=== PATIENT | male | born 1975 | race Two or more races ===

== ENCOUNTER 2019-02-05 10:53 | Inpatient (IN) | payer SELFPAY ==
[2019-02-05 14:01] VITALS: BMI 23.1
--- NOTE | 2019-02-05 15:06 | HP ---
COWS - Scale Resting Pulse: 0= [place] 80 or Below Sweatin= Chills/Flushing Restless Observation: 1= Difficult to Sit Still Pupil Size: 1= Pupils >than Normal Bone or Joint Aches: 2= Severe Diffuse Aches Runny Nose/ Eye Tearin= Runny Nose/Eyes GI Upset > 30mins: 2= Nausea/Diarrhea Tremor Observation: 2= Slight Tremor Visible Yawning Observation: 1= 1-2x During Session Anxiety or Irritability: 2=Irritable/Anxious Goose Flesh Skin: 0=Smooth Skin COWS Score: 14 CIWA Score - Admission Criteria [facility]ASAS Guidelines: Admission for Medically Managed Detox: Requires at least one of the followin. CIWA greater than 12 2. Seizures within the past 24 hours 3. Delirium tremens within the past 24 hours 4. Hallucinations within the past 24 hours 5. Acute intervention needed for co occurring medical disorder 6. Acute intervention needed for co occurring psychiatric disorder 7. Severe withdrawal that cannot be handled at a lower level of care (continued vomiting, continued diarrhea, abnormal vital signs) requiring intravenous medication and/or fluids 8. Admission ROS S - HPI Chief Complaint: i need help to stop using heroin Allergies/Adverse Reactions: Allergies Allergy/AdvReac Type Severity Reaction Status Date / Time No Known Drug Allergies Allergy Verified 02/05/19 15:44 [place] AdvReac Mild Uncoded 02/05/19 15:44 History of Present Illness: this 43 year old male with heroin and cocaine dependence,seeking detox, withdrawal symptom, multiple admissions in detox,last admission [facility] to 02/19/13 not completed nicotine dependence 1/2 pack/day ,would like nicotine patch and gum weight loss longest period of sobriety plan for out patient program injury to left chest wall 2 weeks ago Exam Limitations: No Limitations - Ebola screening Have you traveled outside of the country in the last 21 days: No (N) Have you had contact with anyone from an Ebola affected area: No Do you have a fever: No - Review of Systems Constitutional: Chills, Loss of Appetite, Night Sweats, Changes in sleep, Unintentional Wgt. Loss EENT: reports: Tearing, Nose Congestion Respiratory: reports: No Symptoms reported Cardiac: reports: No Symptoms Reported GI: reports: Diarrhea, Nausea, Vomiting, Indigestion : reports: No Symptoms Reported Musculoskeletal: reports: Back Pain, Joint Pain, Muscle Pain, Joint Stiffness Integumentary: reports: Dryness Neuro: reports: Headache, Tremors Endocrine: reports: No Symptoms Reported Hematology: reports: No Symptoms Reported Psychiatric: reports: No Sypmtoms Reported, Judgement Intact, Mood/Affect Appropiate, Orientated x3 Other Systems: Reviewed and Negative Patient History - Patient Medical History Hx Anemia: No Hx Asthma: Yes (ALBUTEROL inhaler) Hx Chronic Obstructive Pulmonary Disease (COPD): No Hx Cancer: No Hx Cardiac Disorders: No Hx Congestive Heart Failure: No Hx Hypertension: No Hx Hypercholesterolemia: No Hx Pacemaker: No HX Cerebrovascular Accident: No Hx Seizures: No Hx Dementia: No Hx Diabetes: No Hx Gastrointestinal Disorders: No Hx Liver Disease: No Hx Genitourinary Disorders: No Hx Sexually Transmitted Disorders: No Hx Renal Disease (ESRD): No Hx Thyroid Disease: No Hx Human Immunodeficiency Virus (HIV): No (last 08/02negative) Hx Hepatitis C: No Hx Depression: No Hx Suicide Attempt: No Hx Bipolar Disorder: No Hx Schizophrenia: No Other Medical History: no suicidal,no homicidal - Patient Surgical History Past Surgical History: Yes Hx Neurologic Surgery: No Hx Cataract Extraction: No Hx Cardiac Surgery: No Hx Lung Surgery: No Hx Breast Surgery: No Hx Breast Biopsy: No Hx Abdominal Surgery: Yes (right inguinal hernia repair at age of 46 years old) Hx Appendectomy: No Hx Cholecystectomy: No Hx Genitourinary Surgery: No Hx Section: No Hx Orthopedic Surgery: No Other Surgical History: right inguinal hernia repair at age 6 Anesthesia Reaction: No - PPD History Previous Implant?: Yes Documented Results: Negative w/o proof Implanted On Prior [facility] Admission?: Yes Date: 01/06/13 PPD to be Administered?: Yes - Smoking Cessation Smoking history: Current every day smoker Have you smoked in the past 12 months: Yes Aproximately how many cigarettes per day: 20 Hx Chewing Tobacco Use: No Initiated information on smoking cessation: Yes 'Breaking Loose' booklet given: 02/05/19 - Substance & Tx. History Hx Alcohol Use: No Hx Substance Use: Yes Substance Use Type: Cocaine, Heroin Hx Substance Use Treatment: Yes ([facility] 02/18/13 to 02/19/13) - Substances abused Heroin Substance route: Injection Frequency: Daily Amount used: 6-8 bags/daily Age of first use: 30 Date of last use: 02/04/19 Cocaine Substance route: Inhalation Frequency: 1-3 times last 30 days Amount used: $40 Age of first use: 30 Date of last use: 02/02/19 Family Disease History - Family Disease History Family History: Denies Admission Physical Exam [facility] - Vital Signs Vital Signs: Vital Signs - 24 hr 02/05/19 13:52 Temperature 97.4 F L Pulse Rate 72 Respiratory 18 Rate Blood Pressure 97/64 - Physical General Appearance: Yes: Moderate Distress, Tremorous, Irritable, Sweating, Anxious HEENTM: Yes: Normal ENT Inspection, Pharynx Normal Respiratory: Yes: Lungs Clear, Normal Breath Sounds, No Respiratory Distress, Other (history of asthma injury to left ribs 2 weeks ago) Neck: Yes: Within Normal Limits, Supple, Trachea in good position Breast: Yes: Within Normal Limits Cardiology: Yes: Within Normal Limits, Regular Rhythm, Regular Rate, S1, S2 Abdominal: Yes: Within Normal Limits, Normal Bowel Sounds, Non Tender, Flat, Surgical Scar Genitourinary: Yes: Within Normal Limits Back: Yes: Muscle Spasm Musculoskeletal: Yes: Back pain, Joint Stiffness, Muscle Pain Extremities: Yes: Tremors Neurological: 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, Alert, Motor Strength 5/5 Integumentary: Yes: Dry, Track Helm Lymphatic: Yes: Within Normal Limits - Diagnostic (1) Opioid dependence with withdrawal Current Visit: Yes Status: Acute (2) IVDU (intravenous drug user) Current Visit: Yes Status: Acute (3) Cocaine abuse Current Visit: Yes Status: Acute (4) Asthma Current Visit: No Status: Active (5) Weight decreased Current Visit: No Status: Active (6) Contusion of left chest wall Current Visit: Yes Status: Acute (7) Nicotine dependence Current Visit: Yes Status: Acute Cleared for Admission [facility] - Detox or Rehab [facility] Level of Care: Medically Managed Detox Regimen/Protocol: Methadone Inpatient Rehab Admission - Rehab Decision to Admit Inpatient rehab admission?: No
[2019-02-05] MEDS ORDERED: cloNIDine HCL 0.1 MG TABLET PO PRN (15:23)
[2019-02-05] MEDS ORDERED: METHADONE HCL 10 MG TABLET (FOR DETOX USE ONLY) PO ONE ×2 (15:25→23:00)
[2019-02-05] MEDS ORDERED: MAGNESIUM CITRATE 300 ML BOTTLE PO PRN (15:29)
[2019-02-05] MEDS ORDERED: IBUPROFEN 400 MG TABLET (FP) PO PRN (15:29)
[2019-02-05] MEDS ORDERED: BISMUTH SUBSALICYLATE 262 MG/15 ML BTL PO PRN (15:29)
[2019-02-05] MEDS ORDERED: MAGNESIUM HYDROX 2400MG/30ML ORAL SUSPENSION 30 ML CUP PO PRN (15:29)
[2019-02-05] MEDS ORDERED: MAG HYDROX/AL HYDROX/SIMETH 30 ML UNIT-DOSE CUP PO PRN (15:29)
[2019-02-05] MEDS ORDERED: ACETAMINOPHEN 325 MG TABLET (FP) PO PRN ×2 (15:29)
[2019-02-05] MEDS ORDERED: MENTHOL/PHENOL 1 EACH UD MM PRN (15:29)
[2019-02-05] MEDS ORDERED: NICOTINE POLACRILEX 2 MG GUM BUC PRN (15:29)
[2019-02-05] MEDS ORDERED: ALBUTEROL SO4 8 GM HFA INHALER IH PRN (15:33)
[2019-02-05] MEDS: NICOTINE 21 MG/24 HOURS TOPICAL PATCH TD SCH (16:45)
[2019-02-05] MEDS: diazePAM 5 MG TABLET PO PRN (16:45)
[2019-02-05] MEDS: THIAMINE HCL 100 MG TABLET (FP) PO SCH (22:23)
[2019-02-05] MEDS: MELATONIN 5 MG TABLETS PO PRN (22:25)
[2019-02-06] MEDS: diazePAM 5 MG TABLET PO PRN ×4 (04:15→22:41)
[2019-02-06] MEDS ORDERED: METHADONE HCL 10 MG TABLET (FOR DETOX USE ONLY) PO ONE (10:00)
[2019-02-06] MEDS: NICOTINE 21 MG/24 HOURS TOPICAL PATCH TD SCH (10:19)
[2019-02-06] MEDS: PRENATAL VITAMINS W/ FOLIC ACID TABLET (FP) PO SCH (10:20)
[2019-02-06] MEDS: METHOCARBAMOL 500 MG TABLET PO PRN ×2 (10:22→22:42)
[2019-02-06] MEDS: VITAMINS A AND D TOPICAL OINTMENT 60 GM TUBE TP SCH (15:36)
[2019-02-06] MEDS: METHYL SALICYLATE/MENTHOL OINT 30 GM TUBE TP SCH ×2 (15:37→22:37)
--- NOTE | 2019-02-06 15:44 | PN ---
[facility] COWS - Scale Resting Pulse: 1= [place] 81-100 Sweatin= No chills or Flushing Restless Observation: 1= Difficult to Sit Still Pupil Size: 0= Normal to Room Light Bone or Joint Aches: 4=Acute Joint/Muscle Pain Runny Nose/ Eye Tearin= None GI Upset > 30mins: 0= None Tremor Observation of Outstretched Hands: 0= None Yawning Observation: 1= 1-2x During Session Anxiety or Irritability: 2=Irritable/Anxious Goose Flesh Skin: 3=Piloerection COWS Score: 12 BHS Progress Note (SOAP) Subjective: Interrupted Sleep, Body Aches, Anxious. Objective: PATIENT A & O X 3, OBSERVED AMBULATING ON UNIT UNASSISTED. IN NO ACUTE DISTRESS. 02/06/19 15:43 Vital Signs Temperature 98.6 F 02/06/19 13:17 Pulse Rate 81 02/06/19 13:17 Respiratory Rate 18 02/06/19 13:17 Blood Pressure 116/76 02/06/19 13:17 O2 Sat by Pulse Oximetry (%) ADMISSION LAB RESULTS PENDING. 02/06/19 15:43 Assessment: 02/06/19 15:44 WITHDRAWAL SYMPTOMS. Plan: CONTINUE DETOX. TOPICAL ALEXSANDER-ELENA FOR BACK ACHE.
[2019-02-06] MEDS: MELATONIN 5 MG TABLETS PO PRN (22:37)
[2019-02-06] MEDS: BACITRACIN 15 GM TUBE TOPICAL OINTMENT TP SCH (22:37)
[2019-02-06] MEDS: THIAMINE HCL 100 MG TABLET (FP) PO SCH (22:41)
[2019-02-07] MEDS: hydrOXYzine PAMOATE 25 MG CAPSULE (FP) PO PRN ×2 (00:45→05:47)
[2019-02-07] MEDS: diazePAM 5 MG TABLET PO PRN ×3 (02:44→10:19)
[2019-02-07 09:28] VITALS: BP 105/69; PULSE 61; TEMP 97.8
[2019-02-07] MEDS ORDERED: METHADONE HCL 10 MG TABLET (FOR DETOX USE ONLY) PO ONE (10:00)
[2019-02-07 10:01] LABS: HEMATOCRIT 38.7 % (35.4-49); HEMOGLOBIN 12.8 GM/dL (11.7-16.9); MCH 23.9 pg (25.7-33.7); MEAN CELL VOLUME 72.4 fl (80-96); RBC 5.34 M/mm3 (4.00-5.60); RDW 15.1 % (11.9-15.9); WHITE BLOOD COUNT 5.9 K/mm3 (4.0-10.0)
[2019-02-07] MEDS: NICOTINE 21 MG/24 HOURS TOPICAL PATCH TD SCH (10:20)
[2019-02-07] MEDS: PRENATAL VITAMINS W/ FOLIC ACID TABLET (FP) PO SCH (10:20)
[2019-02-07 10:25] LABS: ALBUMIN 3.4 g/dl (3.4-5.0); BILIRUBIN,TOTAL 0.3 mg/dL (0.2-1); BLOOD UREA NITROGEN 15.7 mg/dL (7-18); CALCIUM 9.4 mg/dL (8.5-10.1); CREATININE 0.9 mg/dL (0.55-1.3); POTASSIUM 4.1 mmol/L (3.5-5.1); TOT PROT 7.9 g/dl (6.4-8.2)
[2019-02-07 10:33] LABS: PLATELET COUNT 203 K/MM3 (134-434)
[2019-02-07] MEDS: VITAMINS A AND D TOPICAL OINTMENT 60 GM TUBE TP SCH (10:33)
[2019-02-07] MEDS: BACITRACIN 15 GM TUBE TOPICAL OINTMENT TP SCH (10:33)
[2019-02-07] MEDS: METHYL SALICYLATE/MENTHOL OINT 30 GM TUBE TP SCH (10:33)
[2019-02-07 15:31] LABS: URINE APPEARANCE CLEAR; URINE BILIRUBIN NEGATIVE (NEGATIVE); URINE COLOR YELLOW; URINE GLUCOSE (UA) NEGATIVE (NEGATIVE); URINE KETONE NEGATIVE (NEGATIVE); URINE LEUK ESTERASE NEGATIVE (NEGATIVE); URINE NITRITE NEGATIVE (NEGATIVE); URINE PROTEIN NEGATIVE (NEGATIVE)
--- NOTE | 2019-02-07 16:52 | PN ---
[facility] COWS - Scale Resting Pulse: 0= [place] 80 or Below Sweatin= No chills or Flushing Restless Observation: 1= Difficult to Sit Still Pupil Size: 0= Normal to Room Light Bone or Joint Aches: 0= None Runny Nose/ Eye Tearin= None GI Upset > 30mins: 2= Nausea/Diarrhea Tremor Observation of Outstretched Hands: 0= None Yawning Observation: 1= 1-2x During Session Anxiety or Irritability: 4=Extreme Anxiety Goose Flesh Skin: 0=Smooth Skin COWS Score: 8 BHS Progress Note (SOAP) Subjective: Diarrhea, Anxious, Interrupted Sleep, Fatigue. Objective: PATIENT A & O X 3, OBSERVED AMBULATING ON UNIT UNASSISTED. IN NO ACUTE DISTRESS. 02/07/19 16:51 Vital Signs Temperature 97.8 F 02/07/19 09:28 Pulse Rate 61 02/07/19 09:28 Respiratory Rate 16 02/07/19 09:28 Blood Pressure 105/69 02/07/19 09:28 O2 Sat by Pulse Oximetry (%) Laboratory Tests 02/07/19 02/07/19 02/07/19 07:00 07:00 07:00 WBC 5.9 RBC 5.34 Hgb 12.8 Hct 38.7 MCV 72.4 L MCH 23.9 L MCHC 33.0 RDW 15.1 Plt Count 203 MPV 8.0 Sodium 142 Potassium 4.1 Chloride 107 Carbon Dioxide 28 Anion Gap 7 L BUN 15.7 Creatinine 0.9 Est GFR (CKD-EPI)AfAm 122.52 Est GFR (CKD-EPI)NonAf 105.71 Random Glucose 95 Calcium 9.4 Total Bilirubin 0.3 AST 18 ALT 22 Alkaline Phosphatase 103 Total Protein 7.9 Albumin 3.4 Urine Color Urine Appearance Urine pH Ur Specific [place] Urine Protein Urine Glucose (UA) Urine Ketones Urine Blood Urine Nitrite Urine Bilirubin Urine Urobilinogen Ur Leukocyte Esterase RPR Titer Nonreactive 02/07/19 11:30 WBC RBC Hgb Hct MCV MCH MCHC RDW Plt Count MPV Sodium Potassium Chloride Carbon Dioxide Anion Gap BUN Creatinine Est GFR (CKD-EPI)AfAm Est GFR (CKD-EPI)NonAf Random Glucose Calcium Total Bilirubin AST ALT Alkaline Phosphatase Total Protein Albumin Urine Color Yellow Urine Appearance Clear Urine pH 8.0 Ur Specific [place] 1.019 Urine Protein Negative Urine Glucose (UA) Negative Urine Ketones Negative Urine Blood Negative Urine Nitrite Negative Urine Bilirubin Negative Urine Urobilinogen 1.0 Ur Leukocyte Esterase Negative RPR Titer LABS NOTED. Assessment: 02/07/19 16:51 WITHDRAWAL SYMPTOMS. Plan: CONTINUE DETOX. PSYCHIATRIC EVALUATION FOR SEVERE SLEEPING DIFFICULTY THAT PATIENT EXPERIENCED LAST NIGHT.
--- NOTE | 2019-02-07 16:57 | DS ---
[facility] Detox Discharge Summary Admission Date: 02/05/19 Discharge Date: 02/07/19 - History Present History: Cocaine Dependence, Opioid Dependence Additional Comments: PATIENT REPORTS THAT HE CURRENTLY HAS A FAMILY EMERGENCY AND THAT HE DOES NOT WISH TO REMAIN TO COMPLETE DETOX REGIMEN. RISKS OF LEAVING DETOX UNIT AGAINST MEDICAL ADVICE AND PRIOR TO COMPLETION OF DETOX REGIMEN EXPLAINED TO PATIENT. PATIENT ADVISED TO GO IMMEDIATELY TO NEAREST ER SHOULD ANY INTOLERABLE WITHDRAWAL / DETOX SYMPTOMS DEVELOP AT ANY TIME. PATIENT VERBALIZED UNDERSTANDING OF ALL INFORMATION / RECOMMENDATIONS PRESENTED TO HIM PRIOR TO DEPARTURE FROM DETOX UNIT. PATIENT LEFT DETOX UNIT IN STABLE MEDICAL CONDITION Pertinent Past History: Weight Loss, Nicotine Dependence, History Of Injury To Chest Wall, History Of Intravenous Drug Use. - Physical Exam Results Vital Signs: Vital Signs Temperature 97.8 F 02/07/19 09:28 Pulse Rate 61 02/07/19 09:28 Respiratory Rate 16 02/07/19 09:28 Blood Pressure 105/69 02/07/19 09:28 O2 Sat by Pulse Oximetry (%) Pertinent Admission Physical Exam Findings: WITHDRAWAL SYMPTOMS. Laboratory Tests 02/07/19 02/07/19 02/07/19 07:00 07:00 07:00 WBC 5.9 RBC 5.34 Hgb 12.8 Hct 38.7 MCV 72.4 L MCH 23.9 L MCHC 33.0 RDW 15.1 Plt Count 203 MPV 8.0 Sodium 142 Potassium 4.1 Chloride 107 Carbon Dioxide 28 Anion Gap 7 L BUN 15.7 Creatinine 0.9 Est GFR (CKD-EPI)AfAm 122.52 Est GFR (CKD-EPI)NonAf 105.71 Random Glucose 95 Calcium 9.4 Total Bilirubin 0.3 AST 18 ALT 22 Alkaline Phosphatase 103 Total Protein 7.9 Albumin 3.4 Urine Color Urine Appearance Urine pH Ur Specific [place] Urine Protein Urine Glucose (UA) Urine Ketones Urine Blood Urine Nitrite Urine Bilirubin Urine Urobilinogen Ur Leukocyte Esterase RPR Titer Nonreactive 02/07/19 11:30 WBC RBC Hgb Hct MCV MCH MCHC RDW Plt Count MPV Sodium Potassium Chloride Carbon Dioxide Anion Gap BUN Creatinine Est GFR (CKD-EPI)AfAm Est GFR (CKD-EPI)NonAf Random Glucose Calcium Total Bilirubin AST ALT Alkaline Phosphatase Total Protein Albumin Urine Color Yellow Urine Appearance Clear Urine pH 8.0 Ur Specific [place] 1.019 Urine Protein Negative Urine Glucose (UA) Negative Urine Ketones Negative Urine Blood Negative Urine Nitrite Negative Urine Bilirubin Negative Urine Urobilinogen 1.0 Ur Leukocyte Esterase Negative RPR Titer LABS NOTED. - Treatment Hospital Course: Detox Protocol Followed, Detoxed Safely - Medication Discharge Medications: Ambulatory Orders Albuterol Sulfate Inhaler - [Ventolin Hfa *Inhaler*] 2 inh IH Q4H 01/04/13 - Diagnosis (1) Asthma Status: Active (2) Weight decreased Status: Active (3) Cocaine abuse Status: Acute (4) Contusion of left chest wall Status: Acute Qualifiers: Encounter type: sequela Qualified Code(s): S20.212S - Contusion of left front wall of thorax, sequela (5) IVDU (intravenous drug user) Status: Acute (6) Nicotine dependence Status: Acute Qualifiers: Nicotine product type: cigarettes Substance use status: uncomplicated Qualified Code(s): F17.210 - Nicotine dependence, cigarettes, uncomplicated (7) Opioid dependence with withdrawal Status: Acute - AMA Did Patient Leave Against Medical Advice: Yes (PT. HAD FAMILY EMERGENCY AND DI NOT WISH TO REMAIN TO COMPLETE DETOX.)
[2019-02-08] MEDS ORDERED: METHADONE (DETOX) 10 MG, METHADONE (DETOX) 5 MG PO ONE (10:00)
[2019-02-09] MEDS ORDERED: METHADONE HCL 10 MG TABLET (FOR DETOX USE ONLY) PO ONE (10:00)
[2019-02-10] MEDS ORDERED: METHADONE HCL 5 MG TABLET (FOR DETOX USE ONLY) PO ONE (06:00)
== END 2019-02-07 12:42 | disposition left against medical advice (07) | DRG 770 ==
LOC: YASAS 10:53 → Y3N 15:38
PROVIDERS: ADMIT Surgery; ATTEND Surgery
PROC: HZ2ZZZZ Detoxification Services for Substance Abuse Treatment (ICD-10-PCS; principal; 2019-02-05)
DX: F11.23 Opioid dependence with withdrawal (principal); F14.20 Cocaine dependence, uncomplicated; F17.210 Nicotine dependence, cigarettes, uncomplicated; J45.909 Unspecified asthma, uncomplicated; R63.4 Abnormal weight loss; Z68.23 Body mass index [BMI] 23.0-23.9, adult; S20.212A Contusion of left front wall of thorax, initial encounter; X58.XXXA Exposure to other specified factors, initial encounter; Y93.89 Activity, other specified; Y92.89 Other specified places as the place of occurrence of the external cause; Y99.8 Other external cause status
CPT/HCPCS: 36415; 80053; 81003; 85027; 86593